=== PATIENT | male | born 1960 | race Caucasian/White ===

== ENCOUNTER → 2021-04-27 | Outpatient (CLI) | payer OTHER | LOC: SJCVCIMAG 11:31 | PROVIDERS: ATTEND Internal Medicine | DX: I65.23 Occlusion and stenosis of bilateral carotid arteries (principal); H53.40 Unspecified visual field defects; Z87.891 Personal history of nicotine dependence ==

== ENCOUNTER → 2021-07-08 | Outpatient (CLI) | payer OTHER | LOC: SJCVCIMAG 11:07 | PROVIDERS: ATTEND Internal Medicine | DX: I34.0 Nonrheumatic mitral (valve) insufficiency (principal); I25.10 Atherosclerotic heart disease of native coronary artery without angina pectoris; I42.9 Cardiomyopathy, unspecified; E78.5 Hyperlipidemia, unspecified; I10 Essential (primary) hypertension; R94.31 Abnormal electrocardiogram [ECG] [EKG] ==

== ENCOUNTER → 2021-07-08 | Outpatient (CLI) | payer OTHER | LOC: RAD 16:13 | PROVIDERS: ATTEND Internal Medicine | DX: R06.02 Shortness of breath (principal); U09.9 Post COVID-19 condition, unspecified ==

== ENCOUNTER → 2021-07-20 | Outpatient (CLI) | payer OTHER ==
[2021-07-20 09:08] LABS: CREATININE 1.1 mg/dL (0.7-1.3)
== END ==
LOC: MRI 06-23 12:31
PROVIDERS: ATTEND Family Medicine
DX: I67.82 Cerebral ischemia (principal); R51.9 Headache, unspecified; H53.9 Unspecified visual disturbance